=== PATIENT | male | born 1990 | race African-American/Black ===

== ENCOUNTER 2017-11-13 20:44 | Emergency (ER) | payer OTHER ==
[~2017-11-13] VITALS: Ht 160 cm; Wt 54.4 kg
[2017-11-13 20:59] VITALS: Ht 160 cm; Wt 54.4 kg
[2017-11-13] MEDS ORDERED: SODIUM CHLORIDE 0.9% 1000ML 1,000 ML IV ONE (21:45)
[2017-11-13] MEDS ORDERED: KETOROLAC TROMETHAMINE 30 MG/ML VIAL IV STA (21:45)
[2017-11-13] MEDS ORDERED: ACETAMINOPHEN 500 MG TAB PO STA (21:45)
[2017-11-13 22:09] LABS: BASO % 0.8 %; BASO ABS # 0.03 K/uL (0-0.2); HEMATOCRIT 45.9 % (42-52); IG# 0.01 K/uL (0.00-0.02); LYMPH % 25.4 %; LYMPH ABS # 0.99 K/uL (1.2-3.4); MEAN CELL VOLUME 83.9 fL (80-100); MEAN CORPUSCULAR HEMOGLOBIN 29.3 pg (25-34); MEAN CORPUSCULAR HGB CONC 34.9 g/dl (32-36); MEAN PLATELET VOLUME 9.4 fL (7.4-10.4); MONO % 16.2 %; MONO ABS # 0.63 K/uL (0.11-0.59); NEUT % 57.3 %; NEUT ABS # 2.23 K/uL (1.4-6.5); PLATELET COUNT 136 K/uL (130-400); RED CELL DISTRIBUTION WIDTH CV 12.9 % (11.5-14.5); WHITE BLOOD COUNT 3.89 K/uL (4.8-10.8)
[2017-11-13 22:29] LABS: ALBUMIN 3.3 gm/dl (3.4-5.0); CALCIUM 8.1 mg/dl (8.5-10.1); CREATININE 1.07 mg/dl (0.60-1.40); POTASSIUM 3.3 mmol/L (3.5-5.1)
[2017-11-13 22:32] LABS: TOTAL PROTEIN 7.3 gm/dl (6.4-8.2)
[2017-11-13 22:49] LABS: INFLUENZA B ANTIGEN POS for Influ B (NEG)
[2017-11-13] MEDS ORDERED: ACET-1256 PO (23:00)
[2017-11-13] MEDS ORDERED: OSELTAMIVIR PHOSPHATE 75 MG CAP PO STA (23:00)
[2017-11-13 23:02] VITALS: TEMP 37.5
--- NOTE | 2017-11-13 23:12 | DIAGNOSTIC IMAGING REPORT ---
CHEST ONE VIEW PORTABLE HISTORY: Cough. Fever. Flu like. COMPARISON: None. FINDINGS: The lungs are clear. Cardiac silhouette is normal in size. No pleural effusions. No pneumothorax. IMPRESSION: No acute process. Electronically signed by: Eloy Awad M.D. 11/13/2017 11:10 PM Dictated Date/Time: 11/13/2017 11:07 PM
[2017-11-13 23:45] VITALS: BP 114/66; PULSE 79; O2SAT 100
[2017-11-13] MEDS ORDERED: OSEL75CA12 PO (23:47)
--- NOTE | 2017-11-14 05:12 | EMERGENCY ROOM VISIT NOTE ---
History First contact with patient: 21:37 Chief Complaint: FEVER Stated Complaint: FEVER History of Present Illness The patient is a 27 year old male who presents to the Emergency Room with complaints of fever, chills, body aches, and headache symptoms for the past one day. The patient considers himself usually healthy. He did take Advil earlier this morning, nearly 12 hours ago, with some improvement of the fever. He has been eating and drinking as normal. No chest pain, chest tightness, shortness of breath. No abdominal pain. Review of Systems More than 10 systems were reviewed and otherwise negative with the exception of history of present illness. Past Medical/Surgical History No chronic medical disease Family History No pertinent family history Social History Smoking Status: Never Smoker Housing Status: lives with family Current/Historical Medications Scheduled Acetaminophen (Tylenol), 1,000 MG PO PRN UD Oseltamivir (Tamiflu), 75 MG PO BID Physical Exam Vital Signs Date Time Temp Pulse Resp B/P (MAP) Pulse Ox O2 Delivery O2 Flow Rate FiO2 11/13/17 23:45 79 16 114/66 100 Room Air 11/13/17 23:02 37.5 78 16 106/71 100 Room Air 11/13/17 20:59 38.5 105 20 119/71 97 Room Air Physical Exam VITALS: Vitals are noted on the nurse's note and reviewed by myself. Vital signs stable. GENERAL: Well-developed, well-nourished, male who appears ill but nontoxic EARS: External ear normal. External auditory canals clear, tympanic membranes pearly briceno without erythema or effusion bilaterally. EYES: Pupils equal round and reactive to light and accommodation. Conjunctivae without injection, sclerae without icterus. Extraocular movements intact. NOSE: Patent, turbinates without inflammation or discharge. MOUTH: Mucous membranes moist. Tonsils are not enlarged. Pharynx without erythema, blood, or exudate. Uvula midline. Airway patent. NECK: Supple without nuchal rigidity. No lymphadenopathy. No thyromegaly. Cervical spine is nontender. HEART: Regular rate and rhythm without murmurs gallops or rubs. LUNGS: Clear to auscultation bilaterally without wheezes, rales or rhonchi. No retractions or accessory muscle use. ABDOMEN: Positive normal bowel sounds x 4. Soft, nontender, without masses or organomegaly. No guarding or rebound tenderness. MUSCULOSKELETAL: No muscle atrophy, erythema, or edema noted. Full range of motion without joint tenderness in all extremities. Medical Decision & Procedures ER Provider Diagnostic Interpretation: CHEST ONE VIEW PORTABLE HISTORY: Cough. Fever. Flu like. COMPARISON: None. FINDINGS: The lungs are clear. Cardiac silhouette is normal in size. No pleural effusions. No pneumothorax. IMPRESSION: No acute process. Laboratory Results 11/13/17 21:57 Red Blood Count 5.47, Mean Corpuscular Volume 83.9, Mean Corpuscular Hemoglobin 29.3, Mean Corpuscular Hemoglobin Concent 34.9, Mean Platelet Volume 9.4, Neutrophils (%) (Auto) 57.3, Lymphocytes (%) (Auto) 25.4, Monocytes (%) (Auto) 16.2, Eosinophils (%) (Auto) 0.0, Basophils (%) (Auto) 0.8, Neutrophils # (Auto ) 2.23, Lymphocytes # (Auto) 0.99, Monocytes # (Auto) 0.63, Eosinophils # (Auto ) 0.00, Basophils # (Auto) 0.03 11/13/17 21:57 Test 11/13/17 21:55 11/13/17 21:57 Influenza Type A Antigen Neg for Influ A (NEG) Influenza Type B Antigen POS for Influ B (NEG) White Blood Count 3.89 K/uL (4.8-10.8) Red Blood Count 5.47 M/uL (4.7-6.1) Hemoglobin 16.0 g/dL (14.0-18.0) Hematocrit 45.9 % (42-52) Mean Corpuscular Volume 83.9 fL (80-100) Mean Corpuscular Hemoglobin 29.3 pg (25-34) Mean Corpuscular Hemoglobin Concent 34.9 g/dl (32-36) Platelet Count 136 K/uL (130-400) Mean Platelet Volume 9.4 fL (7.4-10.4) Neutrophils (%) (Auto) 57.3 % Lymphocytes (%) (Auto) 25.4 % Monocytes (%) (Auto) 16.2 % Eosinophils (%) (Auto) 0.0 % Basophils (%) (Auto) 0.8 % Neutrophils # (Auto) 2.23 K/uL (1.4-6.5) Lymphocytes # (Auto) 0.99 K/uL (1.2-3.4) Monocytes # (Auto) 0.63 K/uL (0.11-0.59) Eosinophils # (Auto) 0.00 K/uL (0-0.5) Basophils # (Auto) 0.03 K/uL (0-0.2) RDW Standard Deviation 39.0 fL (36.4-46.3) RDW Coefficient of Variation 12.9 % (11.5-14.5) Immature Granulocyte % (Auto) 0.3 % Immature Granulocyte # (Auto) 0.01 K/uL (0.00-0.02) Anion Gap 9.0 mmol/L (3-11) Est Creatinine Clear Calc Drug Dose 79.1 ml/min Estimated GFR () 108.9 Estimated GFR (Non- 94.0 BUN/Creatinine Ratio 8.6 (10-20) Calcium Level 8.1 mg/dl (8.5-10.1) Total Bilirubin 0.4 mg/dl (0.2-1) Aspartate Amino Transf (AST/SGOT) 17 U/L (15-37) Alanine Aminotransferase (ALT/SGPT) 19 U/L (12-78) Alkaline Phosphatase 70 U/L (45-117) Total Protein 7.3 gm/dl (6.4-8.2) Albumin 3.3 gm/dl (3.4-5.0) Globulin 4.0 gm/dl (2.5-4.0) Albumin/Globulin Ratio 0.8 (0.9-2) Medications Administered Medications (Trade) Dose Ordered Sig/Deion Route Start Time Stop Time Status Last Admin Dose Admin Sodium Chloride 1,000 ml @ 999 mls/hr Q1H1M ONCE IV 11/13/17 21:45 11/13/17 22:45 DC 11/13/17 22:15 999 MLS/HR Ketorolac Tromethamine (Toradol Inj) 30 mg NOW STAT IV 11/13/17 21:45 11/13/17 21:47 DC 11/13/17 22:14 30 MG Acetaminophen (Tylenol Tab) 1,000 mg NOW STAT PO 11/13/17 21:45 11/13/17 21:47 DC 11/13/17 22:15 1,000 MG Oseltamivir Phosphate (Tamiflu Cap) 75 mg NOW STAT PO 11/13/17 23:00 11/13/17 23:01 DC 11/13/17 23:12 75 MG ED Course Physical exam and history were performed. Nursing notes, EMR, and Medication List were personally reviewed. Patient appears to have fever and flulike symptoms for the past one day. On examination the patient appears ill but nontoxic. IV access was established and labs were obtained. He was hydrated and medicated as above. Chest x-ray was performed and reviewed by myself and radiology showing no acute process. Viral swabs were gathered. The patient's blood work is as above and does not show a significantly elevated white blood cell count, gross anemia, bandemia, or significant electrolyte imbalance. The patient's influenza swab was positive for influenza B, which does correlate with his symptoms. The patient was given Tamiflu here in the department. He will be given a continuation prescription of the medication. He is to follow with his primary care physician this week and will be given a note for a few days off work. He felt much better after medication here in the department and voiced understanding. He rated his discomfort a 1/10 at the time of departure. The chart was completed utilizing [employer] Software. Grammatical errors, random word insertions, pronoun errors, and incomplete sentences are an occasional consequence of this system due to software limitations, ambient noise, and hardware issues. Any formal questions or concerns about the content, text, or information contained within the body of this dictation should be directly addressed to the provider for clarification. . Medical Decision Differential diagnosis: Etiologies such as viral syndrome, otitis, pharyngitis, pneumonia, influenza, meningitis, urinary tract infection, sepsis, bacteremia, as well as others were entertained. Impression Primary Impression: Influenza B Departure Information Dispostion Home / Self-Care Condition GOOD Prescriptions Oseltamivir (Tamiflu) 75 Mg Cap 75 MG PO BID for 5 Days, #10 CAP Prov: Ayo Cruz PA-C 11/13/17 Forms HOME CARE DOCUMENTATION FORM, School Instructions, Additional Instructions: Patient was seen and evaluated today in the emergency department fo medical care. Return to class on 11/18/2017. Please excuse. IMPORTANT VISIT INFORMATION Patient Instructions [facility], ED Flu Additional Instructions You were seen and evaluated today on an emergency basis only. This is not a substitute for, or an effort to provide, complete comprehensive medical care. It is not possible to recognize and treat all injuries or illnesses in a single emergency department visit. For this reason it is recommended that you followup with your primary care physician this week for ongoing care and evaluation. For baseline pain relief you may alternate ibuprofen and acetaminophen every 4 hours for pain control. Take 600 mg ibuprofen (Advil) and then 4 hours later take 1000 mg acetaminophen (Tylenol). Do not take more than 3000 mg acetaminophen in a single day. You are welcome to return to the emergency department anytime with new, worsening, or concerning symptoms. School Instructions Additional School Instructions: Patient was seen and evaluated today in the emergency department for medical care. Return to class on 11/18/2017. Please excuse.
== END 2017-11-13 23:55 | disposition home or self-care (01) ==
LOC: C.EDB 20:46
DX: J10.1 Influenza due to other identified influenza virus with other respiratory manifestations (principal)